=== PATIENT | female | born 1950 | race Caucasian/White ===

== ENCOUNTER 2016-10-21 09:30 | Emergency (ER) | payer OTHER ==
[2016-10-21 09:46] VITALS: BP 147/82; PULSE 81; TEMP 98; BMI 26.6
[2016-10-21] MEDS ORDERED: KETOROLAC TROMETHAMINE 30 MG/1 ML VIAL IM ONE (10:20)
[2016-10-21] MEDS ORDERED: KETOROLAC TROMETHAMINE 30 MG/1 ML VIAL ONE (10:28)
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
== END 2016-10-21 11:05 | disposition home or self-care (01) ==
LOC: JERFT 09:30
PROC: 3E0233Z Introduction of Anti-inflammatory into Muscle, Percutaneous Approach (ICD-10-PCS; principal; 2016-10-21)
DX: M54.2 Cervicalgia (principal)
CPT/HCPCS: 96372; 99281-25

== ENCOUNTER 2020-10-14 04:33 | Day surgery (SDC) | payer OTHER ==
[2020-10-13 09:29] VITALS: BMI 29.2
[2020-10-14] MEDS ORDERED: BUPIVACAINE HCL/PF 0.75% 10 ML VIAL ONE (07:34)
[2020-10-14] MEDS ORDERED: LIDOCAINE HCL 1% PRESERVATIVE FREE - 30ML VIAL IJ ONE (11:10)
[2020-10-14] MEDS ORDERED: IOHEXOL 180 MG/1 ML ML IJ ONE (11:11)
[2020-10-14] MEDS ORDERED: BUPIVACAINE HCL/PF 0.5% (5MG/ML) 10 ML VIAL IJ ONE (11:12)
[2020-10-14] MEDS ORDERED: TRIAMCINOLONE ACET 40MG/1ML VIAL IJ ONE (11:13)
[2020-10-14 11:36] VITALS: BP 122/70; PULSE 62; TEMP 97.5
== END 2020-10-14 12:00 | disposition home or self-care (01) ==
LOC: JASU-SURG 04:33
PROVIDERS: ATTEND Pain Medicine Pain Medicine
PROC: 3E0U3BZ Introduction of Anesthetic Agent into Joints, Percutaneous Approach (ICD-10-PCS; 2020-10-14)
PROC: 3E0U33Z Introduction of Anti-inflammatory into Joints, Percutaneous Approach (ICD-10-PCS; principal; 2020-10-14 11:30)
DX: M53.3 Sacrococcygeal disorders, not elsewhere classified (principal)
CPT/HCPCS: 76000-TC-FY

== ENCOUNTER 2021-02-10 04:47 | Day surgery (SDC) | payer OTHER ==
[2021-02-09 14:04] VITALS: BMI 29.2
[2021-02-10] MEDS ORDERED: DEXAMETHASONE SOD PHOSPHATE 10 MG/1 ML VIAL ONE (13:42)
[2021-02-10] MEDS ORDERED: LIDOCAINE HCL 1% PRESERVATIVE FREE - 30ML VIAL IJ ONE (13:51)
[2021-02-10] MEDS ORDERED: IOHEXOL 180 MG/1 ML ML IJ ONE (13:52)
[2021-02-10] MEDS ORDERED: DEXAMETHASONE SOD PHOSPHATE 10 MG/1 ML VIAL IM ONE (13:53)
[2021-02-10 14:41] VITALS: BP 142/73; PULSE 72; TEMP 98.2
== END 2021-02-10 14:20 | disposition home or self-care (01) ==
LOC: JASU-SURG 04:47
PROVIDERS: ATTEND Pain Medicine Pain Medicine
PROC: 3E0R33Z Introduction of Anti-inflammatory into Spinal Canal, Percutaneous Approach (ICD-10-PCS; 2021-02-10)
PROC: 3E0R3BZ Introduction of Anesthetic Agent into Spinal Canal, Percutaneous Approach (ICD-10-PCS; principal; 2021-02-10 12:00)
DX: M48.061 Spinal stenosis, lumbar region without neurogenic claudication (principal); M54.16 Radiculopathy, lumbar region
CPT/HCPCS: 76000-TC-FY; J1100

== ENCOUNTER 2021-05-03 04:28 | Day surgery (SDC) | payer OTHER ==
[2021-04-25 14:19] VITALS: BMI 29.2
[2021-05-03] MEDS ORDERED: LIDOCAINE HCL 1%, 10 MG/ML (20ML VIAL) ONE (07:13)
[2021-05-03] MEDS ORDERED: BUPIVACAINE HCL/PF 0.5% (5MG/ML) 10 ML VIAL ONE (07:13)
[2021-05-03] MEDS ORDERED: LIDOCAINE HCL/PF 2% SDV 5ML VIAL ONE (07:25)
[2021-05-03] MEDS ORDERED: MIDAZOLAM HCL 2 MG/2 ML SINGLE DOSE VIAL ONE (07:25)
[2021-05-03] MEDS ORDERED: SUCCINYLCHOLINE CHLORIDE 200 MG/10 ML SYRINGE ONE (07:25)
[2021-05-03] MEDS ORDERED: PROPOFOL 20 ML ONE (07:25)
[2021-05-03] MEDS ORDERED: ceFAZolin SODIUM 1 GM VIAL IVPB ONE (08:15)
[2021-05-03] MEDS ORDERED: LIDOCAINE HCL 1%, 10 MG/ML (20ML VIAL) PNB ONE (08:27)
[2021-05-03] MEDS ORDERED: BUPIVACAINE HCL/PF 0.5% (5 MG/ML) 30 ML VIAL IJ ONE (08:27)
[2021-05-03] MEDS ORDERED: ONDANSETRON 4 MG/2 ML VIAL IVPUSH PRN (09:43)
[2021-05-03] MEDS ORDERED: oxyCODONE HCL 5 MG TABLET PO PRN (09:43)
[2021-05-03] MEDS ORDERED: LACTATED RINGERS SOLUTION 1,000 ML IV SCH (09:45)
[2021-05-03] MEDS ORDERED: KETOROLAC TROMETHAMINE 30 MG/1 ML VIAL ONE (10:02)
[2021-05-03 10:54] VITALS: PULSE 80
[2021-05-03 12:42] VITALS: BP 120/60; TEMP 98.4
== END 2021-05-03 12:15 | disposition home or self-care (01) ==
LOC: JASU-SURG 04:28
PROVIDERS: ATTEND Podiatrist Foot & Ankle Surgery
PROC: 0QSQ04Z Reposition Right Toe Phalanx with Internal Fixation Device, Open Approach (ICD-10-PCS; 2021-05-03)
PROC: 0SGM0JZ Fusion of Right Metatarsal-Phalangeal Joint with Synthetic Substitute, Open Approach (ICD-10-PCS; 2021-05-03)
PROC: 0QSN04Z Reposition Right Metatarsal with Internal Fixation Device, Open Approach (ICD-10-PCS; 2021-05-03)
PROC: 0QSN04Z Reposition Right Metatarsal with Internal Fixation Device, Open Approach (ICD-10-PCS; 2021-05-03)
PROC: 0QSN04Z Reposition Right Metatarsal with Internal Fixation Device, Open Approach (ICD-10-PCS; 2021-05-03)
PROC: 0QSN04Z Reposition Right Metatarsal with Internal Fixation Device, Open Approach (ICD-10-PCS; 2021-05-03)
PROC: 0QSQ04Z Reposition Right Toe Phalanx with Internal Fixation Device, Open Approach (ICD-10-PCS; 2021-05-03)
PROC: 0SSM04Z Reposition Right Metatarsal-Phalangeal Joint with Internal Fixation Device, Open Approach (ICD-10-PCS; 2021-05-03)
PROC: 0QSN04Z Reposition Right Metatarsal with Internal Fixation Device, Open Approach (ICD-10-PCS; principal; 2021-05-03 07:30)
DX: M20.11 Hallux valgus (acquired), right foot (principal); M20.41 Other hammer toe(s) (acquired), right foot; M79.671 Pain in right foot; M21.611 Bunion of right foot; S93.124A Dislocation of metatarsophalangeal joint of right lesser toe(s), initial encounter; X58.XXXA Exposure to other specified factors, initial encounter; Y93.9 Activity, unspecified; Y92.9 Unspecified place or not applicable; Y99.9 Unspecified external cause status
CPT/HCPCS: 73630-TC-RT-FY; 94760

== ENCOUNTER 2021-11-14 09:15 | Day surgery (SDC) | payer OTHER ==
[2021-11-07 13:01] VITALS: BMI 29.2
[2021-11-14] MEDS ORDERED: CELECOXIB 200 MG CAPSULE PO ONE (09:28)
[2021-11-14] MEDS ORDERED: CEFAZOLIN 2 GM in DEXTROSE 5%-WATER - 50 ML IVPB ONE (09:28)
[2021-11-14] MEDS ORDERED: TRANEXAMIC ACID 1000 MG/10 ML VIAL IVPUSH ONE (09:28)
[2021-11-14] MEDS ORDERED: BUPIVACAINE HCL 50 ML ONE (10:14)
[2021-11-14] MEDS ORDERED: ceFAZolin SODIUM 1 GM VIAL ONE ×3 (10:24→19:47)
[2021-11-14] MEDS ORDERED: VANCOMYCIN 1,000 MG VIAL (RESTRICTED TO ID ONLY) ONE (10:24)
[2021-11-14] MEDS ORDERED: BUPIVACAINE HCL/PF 0.5% (5 MG/ML) 30 ML VIAL IJ ONE (10:47)
[2021-11-14] MEDS ORDERED: MIDAZOLAM HCL 2 MG/2 ML SINGLE DOSE VIAL ONE ×3 (10:47→11:35)
[2021-11-14] MEDS ORDERED: BUPIVACAINE LIPOSOME/PF (EXPAREL) 266 MG/20 ML VIAL ONE (10:47)
[2021-11-14] MEDS ORDERED: SODIUM CHLORIDE 0.9% P/F 10 ML VIAL IJ ONE (10:50)
[2021-11-14] MEDS ORDERED: fentaNYL CITRATE 250 MCG/5 ML VIAL ONE (11:26)
[2021-11-14] MEDS ORDERED: PROPOFOL 20 ML ONE ×3 (11:36)
[2021-11-14] MEDS ORDERED: MAG HYDROX/AL HYDROX/SIMETH 30 ML UNIT-DOSE CUP PO PRN (11:42)
[2021-11-14] MEDS ORDERED: ONDANSETRON 4 MG/2 ML VIAL IVPUSH PRN ×2 (11:42→13:31)
[2021-11-14] MEDS ORDERED: LACTATED RINGERS SOLUTION 1,000 ML IV SCH (11:45)
[2021-11-14] MEDS ORDERED: VANCOMYCIN 1,000 MG VIAL (RESTRICTED TO ID ONLY) IVPB ONE (12:38)
[2021-11-14] MEDS ORDERED: ONDANSETRON 4 MG/2 ML VIAL ONE (13:08)
[2021-11-14] MEDS ORDERED: TRANEXAMIC ACID 1000 MG/10 ML VIAL ONE (13:08)
[2021-11-14] MEDS ORDERED: DEXAMETHASONE SOD PHOSPHATE 4 MG/1 ML VIAL ONE (13:08)
[2021-11-14] MEDS ORDERED: oxyCODONE HCL 5 MG TABLET PO PRN (13:31)
[2021-11-14] MEDS: ACETAMINOPHEN 1000 MG/100 ML BAG IVPB ONE (13:46)
[2021-11-14] MEDS: KETOROLAC TROMETHAMINE 30 MG/1 ML VIAL IVPUSH SCH ×3 (13:55→20:02)
[2021-11-14] MEDS: ACETAMINOPHEN 500 MG TABLET (FP) PO SCH ×2 (15:04→20:01)
[2021-11-14] MEDS: LACTATED RINGERS SOLUTION 1,000 ML IV SCH (16:02)
[2021-11-14] MEDS: oxyCODONE HCL 5 MG TABLET PO PRN (18:08)
[2021-11-14] MEDS ORDERED: DEXTROSE 5%-WATER - 50 ML IVPB ONE (19:47)
[2021-11-14] MEDS: CEFAZOLIN 2 GM in DEXTROSE 5%-WATER - 50 ML IVPB SCH (20:01)
[2021-11-14] MEDS: oxyCODONE HCL 10 MG SUSTAINED ACTING TABLET PO SCH (21:20)
[2021-11-14] MEDS: SENNOSIDES/DOCUSATE COMBO (SENNA PLUS) TABLET (UD) PO SCH (21:20)
[2021-11-15] MEDS: oxyCODONE HCL 5 MG TABLET PO PRN ×5 (00:13→20:04)
[2021-11-15] MEDS: ACETAMINOPHEN 500 MG TABLET (FP) PO SCH ×4 (02:00→20:03)
[2021-11-15] MEDS ORDERED: DEXTROSE 5%-WATER - 50 ML IVPB ONE (03:08)
[2021-11-15] MEDS ORDERED: ceFAZolin SODIUM 1 GM VIAL ONE (03:08)
[2021-11-15] MEDS: CEFAZOLIN 2 GM in DEXTROSE 5%-WATER - 50 ML IVPB SCH (03:11)
[2021-11-15 07:35] LABS: HEMATOCRIT 36.2 % (32.4-45.2); HEMOGLOBIN 12.7 G/dL (10.7-15.3); MCH 32.3 pg (25.7-33.7); MEAN CELL VOLUME 92.3 fl (80-96); MEAN PLT VOLUME 9.7 fl (7.5-11.1); PLATELET COUNT 233.9 10^3/uL (134-434); RBC 3.92 10^6/uL (3.60-5.2); WHITE BLOOD COUNT 8.5 10^3/uL (4.0-10.8)
[2021-11-15] MEDS: ACETAMINOPHEN 1000 MG/100 ML BAG IVPB ONE (08:10)
[2021-11-15] MEDS: ASPIRIN 325 MG TABLET PO SCH (08:23)
[2021-11-15] MEDS: oxyCODONE HCL 10 MG SUSTAINED ACTING TABLET PO SCH ×2 (09:08→21:09)
[2021-11-15] MEDS: MULTIVITAMINS (DAILY MVI) TABLET (FP) PO SCH (09:08)
[2021-11-15] MEDS: SENNOSIDES/DOCUSATE COMBO (SENNA PLUS) TABLET (UD) PO SCH ×2 (09:09→21:09)
[2021-11-15] MEDS: PANTOPRAZOLE 40 MG TABLET PO SCH (09:09)
[2021-11-15] MEDS: LACTATED RINGERS SOLUTION 1,000 ML IV SCH (19:00)
[2021-11-16] MEDS: ACETAMINOPHEN 500 MG TABLET (FP) PO SCH ×3 (05:57→14:19)
[2021-11-16] MEDS: oxyCODONE HCL 5 MG TABLET PO PRN (06:28)
[2021-11-16 08:18] LABS: HEMATOCRIT 31.3 % (32.4-45.2); HEMOGLOBIN 10.8 G/dL (10.7-15.3); MCH 31.8 pg (25.7-33.7); MCHC 34.4 g/dl (32.0-36.0); MEAN CELL VOLUME 92.5 fl (80-96); MEAN PLT VOLUME 9.2 fl (7.5-11.1); PLATELET COUNT 193.2 10^3/uL (134-434); RBC 3.38 10^6/uL (3.60-5.2); RDW 13.9 % (11.6-15.6); WHITE BLOOD COUNT 7.8 10^3/uL (4.0-10.8)
[2021-11-16] MEDS: PANTOPRAZOLE 40 MG TABLET PO SCH (09:01)
[2021-11-16] MEDS: oxyCODONE HCL 10 MG SUSTAINED ACTING TABLET PO SCH (09:01)
[2021-11-16] MEDS: ASPIRIN 325 MG TABLET PO SCH (09:01)
[2021-11-16] MEDS: MULTIVITAMINS (DAILY MVI) TABLET (FP) PO SCH (09:01)
[2021-11-16] MEDS: SENNOSIDES/DOCUSATE COMBO (SENNA PLUS) TABLET (UD) PO SCH (09:01)
[2021-11-16 13:54] VITALS: BP 124/52; PULSE 85; TEMP 98.9
[2021-11-17] MEDS ORDERED: FERROUS GLUCONATE 324 MG TAB (FP) PO SCH (10:00)
== END 2021-11-16 16:15 | disposition home health service (06) ==
LOC: FASUSAT 09:15 → EDSTATUS 11:00 → FM/S 14:24 → FASUSAT 11-16 16:15
PROVIDERS: ATTEND Orthopaedic Surgery
PROC: 8E0YXBZ Computer Assisted Procedure of Lower Extremity (ICD-10-PCS; 2021-11-14)
PROC: 8E0Y0CZ Robotic Assisted Procedure of Lower Extremity, Open Approach (ICD-10-PCS; 2021-11-14)
PROC: 0SRC0J9 Replacement of Right Knee Joint with Synthetic Substitute, Cemented, Open Approach (ICD-10-PCS; principal; 2021-11-14 11:51)
DX: M17.11 Unilateral primary osteoarthritis, right knee (principal)
CPT/HCPCS: 20985; 27447; C1776; S2900; 36415; 73560-TC-RT-FY; 85027; 94760; 97010-GP; 97116-GP; 97161-GP

== ENCOUNTER 2023-06-11 03:56 | Day surgery (SDC) | payer OTHER ==
[2023-06-07 15:53] VITALS: BMI 29.2
[2023-06-11] MEDS ORDERED: LIDOCAINE HCL/PF 1% SDV 5ML VIAL ONE (07:36)
[2023-06-11] MEDS ORDERED: BUPIVACAINE HCL/PF 0.5% (5MG/ML) 10 ML VIAL ONE (07:36)
[2023-06-11] MEDS ORDERED: TRIAMCINOLONE ACET 40MG/1ML VIAL ONE (07:36)
[2023-06-11] MEDS ORDERED: ACETAMINOPHEN 500 MG TABLET (FP) PO PRN (09:16)
[2023-06-11 13:00] VITALS: RESP 18
[2023-06-11] MEDS ORDERED: TRIAMCINOLONE ACET 40MG/1ML VIAL IM ONE (14:16)
[2023-06-11] MEDS ORDERED: BUPIVACAINE HCL/PF 0.5% (5 MG/ML) 30 ML VIAL IJ ONE (14:16)
[2023-06-11] MEDS ORDERED: LIDOCAINE HCL 1% PRESERVATIVE FREE - 30ML VIAL IJ ONE (14:16)
[2023-06-11] MEDS ORDERED: IOHEXOL 180 MG/1 ML ML IJ ONE (14:17)
[2023-06-11 15:08] VITALS: TEMP 97.2
[2023-06-11 15:28] VITALS: BP 115/44; PULSE 72
== END 2023-06-11 15:28 | disposition home or self-care (01) ==
LOC: JASU-SURG 03:56
PROVIDERS: ATTEND Pain Medicine Pain Medicine
PROC: 3E0U3BZ Introduction of Anesthetic Agent into Joints, Percutaneous Approach (ICD-10-PCS; 2023-06-11)
PROC: 3E0U33Z Introduction of Anti-inflammatory into Joints, Percutaneous Approach (ICD-10-PCS; principal; 2023-06-11 14:15)
DX: M53.3 Sacrococcygeal disorders, not elsewhere classified (principal)
CPT/HCPCS: 76000-TC-FY

== ENCOUNTER 2023-08-09 05:00 | Day surgery (SDC) | payer OTHER ==
[2023-08-09 10:52] VITALS: RESP 18
[2023-08-09] MEDS: IOHEXOL 180 MG/1 ML ML IJ ONE (11:36)
[2023-08-09] MEDS: LIDOCAINE 1% P/F 10 MG/ML VIAL INF ONE (11:36)
[2023-08-09] MEDS: DEXAMETHASONE SOD PHOSPHATE 10 MG/1 ML VIAL IVPUSH ONE ×2 (11:38→11:40)
[2023-08-09 11:52] VITALS: BP 132/62; PULSE 72; TEMP 97.9
[2023-08-09] MEDS ORDERED: ACETAMINOPHEN 500 MG TABLET (FP) ONE (12:05)
[2023-08-09] MEDS ORDERED: ACETAMINOPHEN 500 MG TABLET (FP) PO PRN (14:19)
== END 2023-08-09 12:40 | disposition home or self-care (01) ==
LOC: EDSTATUS 12:30 → JASU-SURG 12:40 → JPT 08-12 10:57
PROVIDERS: ATTEND Pain Medicine Pain Medicine
PROC: 3E0R3BZ Introduction of Anesthetic Agent into Spinal Canal, Percutaneous Approach (ICD-10-PCS; 2023-08-09)
PROC: 00HU33Z Insertion of Infusion Device into Spinal Canal, Percutaneous Approach (ICD-10-PCS; 2023-08-09)
PROC: 3E0R33Z Introduction of Anti-inflammatory into Spinal Canal, Percutaneous Approach (ICD-10-PCS; principal; 2023-08-09 12:30)
DX: M54.16 Radiculopathy, lumbar region (principal)
CPT/HCPCS: 76000-TC-FY; 97010-GP; 97110-GP; G0283-GP; J1100

== ENCOUNTER 2024-01-30 06:25 | Day surgery (SDC) | payer OTHER ==
[2024-01-28 09:30] VITALS: BMI 29.2
[2024-01-30] MEDS ORDERED: DEXAMETHASONE SOD PHOSPHATE 10 MG/1 ML VIAL ONE (07:11)
[2024-01-30] MEDS ORDERED: LIDOCAINE HCL/PF 1% SDV 5ML VIAL ONE (07:11)
[2024-01-30] MEDS ORDERED: BUPIVACAINE HCL/PF 0.5% (5MG/ML) 10 ML VIAL ONE (07:11)
[2024-01-30] MEDS: LIDOCAINE 1% P/F 10 MG/ML VIAL PNB ONE ×2 (10:48)
[2024-01-30] MEDS: IOHEXOL 180 MG/1 ML ML IJ ONE ×2 (10:48)
[2024-01-30] MEDS: DEXAMETHASONE SOD PHOSPHATE 10 MG/1 ML VIAL IVPUSH ONE ×2 (10:48)
[2024-01-30] MEDS ORDERED: ACETAMINOPHEN 500 MG TABLET (FP) PO PRN (10:57)
[2024-01-30 11:15] VITALS: BP 169/70; PULSE 65; RESP 18; TEMP 97.1
== END 2024-01-30 11:30 | disposition home or self-care (01) ==
LOC: JASU-SURG 06:25
PROVIDERS: ATTEND Pain Medicine Pain Medicine
PROC: 3E0R3BZ Introduction of Anesthetic Agent into Spinal Canal, Percutaneous Approach (ICD-10-PCS; 2024-01-30)
PROC: 3E0R33Z Introduction of Anti-inflammatory into Spinal Canal, Percutaneous Approach (ICD-10-PCS; principal; 2024-01-30 09:45)
DX: M54.16 Radiculopathy, lumbar region (principal)
CPT/HCPCS: 76000-TC-FY; J1100

== ENCOUNTER 2024-03-21 14:37 | Emergency (ER) | payer OTHER ==
[2024-03-21 14:45] VITALS: BP 126/68; PULSE 83; RESP 19; TEMP 98.1; BMI 29.8
[2024-03-21] MEDS ORDERED: ACETAMINOPHEN INJECTION 100 ML ONE (17:12)
[2024-03-21] MEDS: ACETAMINOPHEN 500 MG TABLET (FP) PO ONE (17:21)
[2024-03-21] MEDS: ACETAMINOPHEN 1000 MG/100 ML BAG IVPB ONE (17:21)
== END 2024-03-21 19:10 | disposition home or self-care (01) ==
LOC: JER 14:37
PROC: 3E033NZ Introduction of Analgesics, Hypnotics, Sedatives into Peripheral Vein, Percutaneous Approach (ICD-10-PCS; principal; 2024-03-21)
DX: M79.672 Pain in left foot (principal); M79.89 Other specified soft tissue disorders
CPT/HCPCS: 73030-TC-LT-FY; 73030-TC-RT-FY; 73610-TC-LT-FY; 73630-TC-LT; 93971-TC; 96374; 99284-25; J0131

== ENCOUNTER 2024-05-26 13:20 | Emergency (ER) | payer OTHER ==
[2024-05-26 13:30] VITALS: TEMP 97.7; BMI 29.2
[2024-05-26] MEDS ORDERED: LIDOCAINE 4% PATCH TP ONE (14:50)
[2024-05-26] MEDS ORDERED: ACETAMINOPHEN 325 MG TABLET (FP) ONE (14:50)
[2024-05-26] MEDS: ACETAMINOPHEN 500 MG TABLET (FP) PO ONE (15:11)
[2024-05-26] MEDS: LIDOCAINE 5% TOPICAL PATCH TP ONE (15:11)
[2024-05-26 18:06] VITALS: BP 124/62; PULSE 78; RESP 18
[2024-05-26] MEDS ORDERED: LIDOCAINE PATCH REMOVAL MC ONE (22:00)
== END 2024-05-26 18:07 | disposition home or self-care (01) ==
LOC: JER 13:20
DX: S46.811A Strain of other muscles, fascia and tendons at shoulder and upper arm level, right arm, initial encounter (principal); S46.812A Strain of other muscles, fascia and tendons at shoulder and upper arm level, left arm, initial encounter; M47.812 Spondylosis without myelopathy or radiculopathy, cervical region; R51.9 Headache, unspecified; X58.XXXA Exposure to other specified factors, initial encounter
CPT/HCPCS: 70450-TC; 93005; 93010; 99284-25